=== PATIENT | female | born 1985 | race African-American/Black ===

== ENCOUNTER 2023-01-10 11:22 | Inpatient (IN) | payer BC ==
[2023-01-10 12:09] VITALS: BMI 20.7
[2023-01-10] MEDS ORDERED: Betamet Acet/Betamet Na Ph 30 MG/5 ML VIAL ONE (12:43)
[2023-01-10] MEDS ORDERED: Ondansetron PF 4 MG/2 ML Vial IVP PRN (13:19)
[2023-01-10] MEDS ORDERED: hydrALAZINE 20 MG/ML VIAL SLOW IVP PRN (13:19)
[2023-01-10] MEDS ORDERED: Promethazine HCl 25 MG/ML VIAL IM PRN (13:19)
[2023-01-10] MEDS ORDERED: Docusate 100 MG CAP PO PRN (13:19)
[2023-01-10] MEDS ORDERED: Oxytocin 30 units/NS 500 ML 500 ML IV SCH (13:30)
[2023-01-10] MEDS ORDERED: Lorazepam 2 MG/ML VIAL SLOW IVP PRN (13:30)
[2023-01-10] MEDS ORDERED: Calcium Gluc 4.6 MEQ/10 ML (100 MG/ML) SLOW IVP PRN (13:30)
[2023-01-10] MEDS ORDERED: Labetalol HCl 100 MG/20 ML VIAL SLOW IVP PRN (13:30)
[2023-01-10] MEDS ORDERED: NIFEdipine 10 MG CAP PO PRN ×2 (13:30)
[2023-01-10] MEDS ORDERED: NIFEdipine 10 MG CAP ONE (13:45)
[2023-01-10 13:58] LABS: Hematocrit 35.4 % (34.9-44.5); Hemoglobin 11.8 g/dL (12.0-15.5); Mean Corpuscular HGB CONC 33.3 g/dL (32.0-36.0); Mean Corpuscular Hemoglobin 29.6 pg (27.0-33.0); Mean Corpuscular Volume 88.9 fl (81.6-98.3); Mean Platelet Volume 11.7 fl (7.4-10.4); Platelet Count 154 10x3/uL (150-450); RBC Distribution Width 12.6 % (11.5-14.5); Red Blood Cell (RBC) Count 3.98 10x6/uL (3.90-5.03); White Blood Cell (WBC) Count 6.2 10x3/uL (3.5-10.5)
[2023-01-10] MEDS ORDERED: Magnesium Sulfate 20 gm/500 ml 20 GM/500 ML BAG ONE ×2 (14:14→21:11)
[2023-01-10 14:15] LABS: ALT (SGPT) 14 U/L (8-55); AST (SGOT) 21 U/L (5-34); Albumin 3.2 g/dL (3.5-5.0); Alkaline Phosphatase 84 U/L (40-110); Anion Gap 12 mmol/L (10-20); BUN (Urea Nitrogen) 8 mg/dL (7.0-18.7); Bilirubin, Total 0.3 mg/dL (0.2-1.2); Calc. Creatinine Clearance 97 mL/min (70-130); Calcium 8.7 mg/dL (7.8-10.44); Carbon Dioxide 22 mmol/L (22-29); Chloride 107 mmol/L (98-107); Estimated GFR 104; Globulin 2.9 g/dL (2.4-3.5); Glucose 86 mg/dL (70-105); Potassium 4.5 mmol/L (3.5-5.1); Protein, Total 6.1 g/dL (6.0-8.3); Sodium 136 mmol/L (136-145)
[2023-01-10] MEDS: Betamet Acet/Betamet Na Ph 30 MG/5 ML VIAL IM SCH (14:17)
[2023-01-10] MEDS: Lactated Ringer's 1,000 ML IV SCH ×2 (14:30→22:37)
[2023-01-10 17:45] LABS: Creatinine, Urine 49.29 mg/dL (47-110)
[2023-01-10] MEDS ORDERED: Magnesium Sulfate 20 gm/500 ml 4 GM/100 ML BAG IVPB SCH (21:15)
[2023-01-11] MEDS: Lactated Ringer's 1,000 ML IV SCH ×2 (02:25→19:16)
[2023-01-11] MEDS: Acetaminophen 500 MG TAB PO PRN ×2 (04:02→14:15)
[2023-01-11 06:36] LABS: Hematocrit 31.5 % (34.9-44.5); Hemoglobin 10.7 g/dL (12.0-15.5); Mean Corpuscular Hemoglobin 29.6 pg (27.0-33.0); Mean Corpuscular Volume 87.3 fl (81.6-98.3); Mean Platelet Volume 11.6 fl (7.4-10.4); Platelet Count 152 10x3/uL (150-450); RBC Distribution Width 12.6 % (11.5-14.5); Red Blood Cell (RBC) Count 3.61 10x6/uL (3.90-5.03); White Blood Cell (WBC) Count 9.3 10x3/uL (3.5-10.5)
[2023-01-11 06:37] LABS: MDiff Complete? YES
[2023-01-11 06:49] LABS: ALT (SGPT) 12 U/L (8-55); AST (SGOT) 19 U/L (5-34); Albumin 2.8 g/dL (3.5-5.0); Alkaline Phosphatase 77 U/L (40-110); Anion Gap 13 mmol/L (10-20); BUN (Urea Nitrogen) 9 mg/dL (7.0-18.7); Bilirubin, Total 0.2 mg/dL (0.2-1.2); Calc. Creatinine Clearance 95 mL/min (70-130); Carbon Dioxide 18 mmol/L (22-29); Chloride 108 mmol/L (98-107); Estimated GFR 102; Globulin 2.6 g/dL (2.4-3.5); Glucose 99 mg/dL (70-105); Magnesium 4.2 mg/dL (1.6-2.6); Potassium 4.3 mmol/L (3.5-5.1); Protein, Total 5.4 g/dL (6.0-8.3); Sodium 135 mmol/L (136-145)
[2023-01-11 06:53] LABS: Platelet Adequacy Comment Appears Adequate; RBC Morph Comment Within Normal Limits
[2023-01-11 06:55] LABS: Band 4 % (5-11); Eosinophils 2 % (0-10); Lymphocytes 15 % (21-51); Monocytes 4 % (0-10); Neutrophil 75 % (42-75)
[2023-01-11] MEDS ORDERED: Labetalol HCl 100 MG TAB PO SCH (10:30)
[2023-01-11] MEDS ORDERED: Magnesium Sulfate 20 gm/500 ml 20 GM/500 ML BAG ONE (13:59)
[2023-01-11] MEDS: Betamet Acet/Betamet Na Ph 30 MG/5 ML VIAL IM SCH (14:11)
[2023-01-11] MEDS: Prenatal Vitamin 1 TAB PO SCH (14:20)
[2023-01-11 18:14] LABS: HBSAg Index 0.13 S/CO (0-0.99); Hep B Surf Ag - L&D Non-Reactive S/CO (NonReactive); Syphilis Antibody Nonreactive (Nonreactive); Syphilis Antibody Index 0.05 S/CO (<1.00 Non-Reactive)
[2023-01-11 18:17] LABS: Hematocrit 32.5 % (34.9-44.5); Hemoglobin 11.2 g/dL (12.0-15.5); Mean Corpuscular HGB CONC 34.5 g/dL (32.0-36.0); Mean Corpuscular Hemoglobin 30.1 pg (27.0-33.0); Mean Corpuscular Volume 87.4 fl (81.6-98.3); Platelet Count 161 10x3/uL (150-450); RBC Distribution Width 12.7 % (11.5-14.5); Red Blood Cell (RBC) Count 3.72 10x6/uL (3.90-5.03); White Blood Cell (WBC) Count 11.4 10x3/uL (3.5-10.5)
[2023-01-11 19:29] LABS: HIV (1/2) Antibody/Antigen Non-Reactive (NonReactive); HIV 1/2 INDEX 0.11 S/CO (<1.00)
[2023-01-11] MEDS: Labetalol HCl 100 MG TAB PO SCH (21:26)
[2023-01-12 05:16] LABS: #Monocytes 0.6 10x3/uL (0.0-1.1); %Basophils 0.1 % (0.0-2.0); %Lymphocytes 8.9 % (18.0-47.0); %Monocytes 5.8 % (0.0-10.0); %Neutrophils 83.6 % (40.0-75.0); Hematocrit 31.6 % (34.9-44.5); Hemoglobin 10.8 g/dL (12.0-15.5); Mean Corpuscular HGB CONC 34.2 g/dL (32.0-36.0); Mean Corpuscular Hemoglobin 29.8 pg (27.0-33.0); Mean Corpuscular Volume 87.3 fl (81.6-98.3); Mean Platelet Volume 12.2 fl (7.4-10.4); Platelet Count 161 10x3/uL (150-450); RBC Distribution Width 12.8 % (11.5-14.5); Red Blood Cell (RBC) Count 3.62 10x6/uL (3.90-5.03); White Blood Cell (WBC) Count 10.7 10x3/uL (3.5-10.5)
[2023-01-12 05:37] LABS: ALT (SGPT) 14 U/L (8-55); AST (SGOT) 20 U/L (5-34); Albumin 3.1 g/dL (3.5-5.0); Alkaline Phosphatase 76 U/L (40-110); Anion Gap 14 mmol/L (10-20); BUN (Urea Nitrogen) 14 mg/dL (7.0-18.7); Bilirubin, Total Less than 0.2 mg/dL (0.2-1.2); Calc. Creatinine Clearance 92 mL/min (70-130); Calcium 7.3 mg/dL (7.8-10.44); Carbon Dioxide 19 mmol/L (22-29); Chloride 105 mmol/L (98-107); Estimated GFR 98; Globulin 2.7 g/dL (2.4-3.5); Glucose 113 mg/dL (70-105); Potassium 4.9 mmol/L (3.5-5.1); Protein, Total 5.8 g/dL (6.0-8.3); Sodium 133 mmol/L (136-145)
[2023-01-12] MEDS: Lactated Ringer's 1,000 ML IV SCH ×2 (06:31)
[2023-01-12] MEDS ORDERED: Magnesium Sulfate 20 gm/500 ml 0 GM/0 ML BAG ONE (09:14)
[2023-01-12] MEDS: Labetalol HCl 100 MG TAB PO SCH ×2 (09:17→20:52)
[2023-01-12] MEDS ORDERED: hydrALAZINE 20 MG/ML VIAL ONE (21:41)
[2023-01-13] MEDS: Acetaminophen 500 MG TAB PO PRN ×2 (01:07→17:12)
[2023-01-13] MEDS ORDERED: Magnesium Sulfate 20 gm/500 ml 20 GM/500 ML BAG ONE (06:47)
[2023-01-13] MEDS ORDERED: Labetalol HCl 100 MG/20 ML VIAL SLOW IVP PRN ×2 (07:15)
[2023-01-13] MEDS ORDERED: Lorazepam 2 MG/ML VIAL SLOW IVP PRN (07:15)
[2023-01-13] MEDS ORDERED: Calcium Gluc 4.6 MEQ/10 ML (100 MG/ML) SLOW IVP PRN (07:15)
[2023-01-13] MEDS ORDERED: Magnesium Sulfate 20 gm/500 ml 4 GM/100 ML BAG IVPB SCH (07:15)
[2023-01-13] MEDS ORDERED: hydrALAZINE 20 MG/ML VIAL SLOW IVP PRN ×2 (07:15)
[2023-01-13 07:20] LABS: #Monocytes 0.8 10x3/uL (0.0-1.1); #Neutrophils 7.5 10x3/uL (1.5-8.4); %Basophils 0.2 % (0.0-2.0); %Eosinophils 0.2 % (0.0-6.0); %Lymphocytes 15.2 % (18.0-47.0); %Monocytes 7.6 % (0.0-10.0); Hematocrit 31.9 % (34.9-44.5); Hemoglobin 10.7 g/dL (12.0-15.5); Mean Corpuscular HGB CONC 33.5 g/dL (32.0-36.0); Mean Corpuscular Hemoglobin 29.9 pg (27.0-33.0); Mean Corpuscular Volume 89.1 fl (81.6-98.3); Mean Platelet Volume 11.3 fl (7.4-10.4); Platelet Count 149 10x3/uL (150-450); RBC Distribution Width 13.1 % (11.5-14.5); Red Blood Cell (RBC) Count 3.58 10x6/uL (3.90-5.03); White Blood Cell (WBC) Count 9.9 10x3/uL (3.5-10.5)
[2023-01-13 07:31] LABS: ALT (SGPT) 21 U/L (8-55); AST (SGOT) 27 U/L (5-34); Alkaline Phosphatase 76 U/L (40-110); Anion Gap 10 mmol/L (10-20); BUN (Urea Nitrogen) 12 mg/dL (7.0-18.7); Bilirubin, Total 0.2 mg/dL (0.2-1.2); Calc. Creatinine Clearance 101 mL/min (70-130); Calcium 7.3 mg/dL (7.8-10.44); Carbon Dioxide 21 mmol/L (22-29); Chloride 113 mmol/L (98-107); Estimated GFR 109; Globulin 2.6 g/dL (2.4-3.5); Glucose 81 mg/dL (70-105); Potassium 4.4 mmol/L (3.5-5.1); Protein, Total 5.6 g/dL (6.0-8.3); Sodium 140 mmol/L (136-145)
[2023-01-13] MEDS: Lactated Ringer's 1,000 ML IV SCH ×3 (08:44→22:52)
[2023-01-13] MEDS: Prenatal Vitamin 1 TAB PO SCH ×2 (08:44→08:50)
[2023-01-13] MEDS: NIFEdipine XL 30 MG ER.TAB PO SCH (08:50)
[2023-01-13] MEDS: Calcium Carbonate 500 MG ChewTAB PO SCH (08:50)
[2023-01-13] MEDS: Magnesium Sulfate 20 gm/500 ml 20 GM/500 ML BAG IVPB SCH (08:51)
[2023-01-13 11:07] LABS: Creatinine, Urine 25.23 mg/dL (47-110); Protein, Urine Random Quant Less than 10 mg/dL (1-14)
[2023-01-13] MEDS ORDERED: Zolpidem Tartrate 5 MG TAB PO PRN (17:08)
[2023-01-13 22:24] LABS: Magnesium 7.2 mg/dL (1.6-2.6)
[2023-01-14 00:43] LABS: Magnesium 5.8 mg/dL (1.6-2.6)
[2023-01-14] MEDS: Calcium Carbonate 500 MG ChewTAB PO SCH (07:44)
[2023-01-14] MEDS: Prenatal Vitamin 1 TAB PO SCH (08:30)
[2023-01-14] MEDS: NIFEdipine XL 30 MG ER.TAB PO SCH (08:31)
[2023-01-14] MEDS: Acetaminophen 500 MG TAB PO PRN (08:31)
[2023-01-14] MEDS ORDERED: Bicitra 30 ML UDCUP PO PRN (13:53)
[2023-01-14] MEDS ORDERED: Famotidine/PF 20 mg/2ml Vial SLOW IVP PRN (13:53)
[2023-01-14] MEDS ORDERED: CEFAZOLIN 2 GM in Sodium Chloride 0.9% 100 ML IVPB SCH (14:00)
[2023-01-14 14:53] LABS: #Eosinphils 0.1 10x3/uL (0.0-0.5); #Monocytes 0.8 10x3/uL (0.0-1.1); #Neutrophils 6.6 10x3/uL (1.5-8.4); %Basophils 0.2 % (0.0-2.0); %Eosinophils 1.1 % (0.0-6.0); %Lymphocytes 17.4 % (18.0-47.0); %Monocytes 8.4 % (0.0-10.0); %Neutrophils 71.4 % (40.0-75.0); Hematocrit 36.9 % (34.9-44.5); Hemoglobin 12.1 g/dL (12.0-15.5); Mean Corpuscular HGB CONC 32.8 g/dL (32.0-36.0); Mean Corpuscular Hemoglobin 29.2 pg (27.0-33.0); Mean Corpuscular Volume 88.9 fl (81.6-98.3); Mean Platelet Volume 11.9 fl (7.4-10.4); Platelet Count 151 10x3/uL (150-450); RBC Distribution Width 13.2 % (11.5-14.5); Red Blood Cell (RBC) Count 4.15 10x6/uL (3.90-5.03); White Blood Cell (WBC) Count 9.3 10x3/uL (3.5-10.5)
[2023-01-14 15:04] LABS: ALT (SGPT) 94 U/L (8-55); AST (SGOT) 111 U/L (5-34); Albumin 3.2 g/dL (3.5-5.0); Alkaline Phosphatase 94 U/L (40-110); Anion Gap 12 mmol/L (10-20); BUN (Urea Nitrogen) 15 mg/dL (7.0-18.7); Bilirubin, Total 0.2 mg/dL (0.2-1.2); Calc. Creatinine Clearance 93 mL/min (70-130); Calcium 7.5 mg/dL (7.8-10.44); Carbon Dioxide 22 mmol/L (22-29); Chloride 107 mmol/L (98-107); Estimated GFR 99; Globulin 2.9 g/dL (2.4-3.5); Glucose 80 mg/dL (70-105); Potassium 3.9 mmol/L (3.5-5.1); Protein, Total 6.1 g/dL (6.0-8.3); Sodium 137 mmol/L (136-145)
[2023-01-14] MEDS ORDERED: Morphine PF 10 MG/10 ML VIAL ONE (15:22)
[2023-01-14] MEDS ORDERED: fentaNYL 50 mcg/mL 1 mL Vial ONE (15:22)
[2023-01-14] MEDS ORDERED: Sodium Bicarbonate 2.5 MEQ/5 ML VIAL ONE (15:22)
[2023-01-14] MEDS ORDERED: Phenylephrine 40 MG/NS 250 ML 250 ML ONE (15:23)
[2023-01-14] MEDS ORDERED: Midazolam HCl 2 mg/2 ml Vial ONE (16:10)
[2023-01-14] MEDS ORDERED: Ondansetron PF 4 MG/2 ML Vial ONE (16:11)
[2023-01-14] MEDS ORDERED: Dexamethasone 4 mg/ml Vial ONE (16:11)
[2023-01-14] MEDS ORDERED: Oxytocin 10 UNITS/ML VIAL ONE (16:11)
[2023-01-14] MEDS ORDERED: KETAMINE 100 MG/ML (5ML VIAL) ONE (16:14)
[2023-01-14] MEDS ORDERED: Lidocaine 1% PF 10 ML AMP ONE (16:16)
[2023-01-14] MEDS ORDERED: PROPOFOL 20 ML ONE (16:17)
[2023-01-14] MEDS ORDERED: Succinylcholine 200 MG/10 ml SYRINGE FS ONE (16:17)
[2023-01-14] MEDS ORDERED: Lidocaine 1% (PF) 30 ML VIAL ONE (16:17)
[2023-01-14] MEDS ORDERED: Ketorolac Tromethamine 30 MG/ML VIAL ONE (16:27)
[2023-01-14] MEDS ORDERED: Tranexamic Acid 1,000 MG/10 ML VIAL ONE (16:31)
[2023-01-14] MEDS ORDERED: Promethazine HCl 25 MG SUPP PR PRN (16:38)
[2023-01-14] MEDS ORDERED: Naloxone HCl 0.4 mg/ml Vial IVP PRN ×2 (16:38)
[2023-01-14] MEDS ORDERED: diphenhydrAMINE 50 MG/ML VIAL IM PRN (16:38)
[2023-01-14] MEDS ORDERED: HYDROmorphone/PF 10 MG in Sodium Chloride 0.9% 99 ML IV PRN (16:38)
[2023-01-14] MEDS ORDERED: Promethazine HCl 25 MG/ML VIAL IM PRN ×2 (16:38)
[2023-01-14] MEDS ORDERED: Moisturizing Cream (Eucerin) 113 GM JAR TOP PRN (16:38)
[2023-01-14] MEDS ORDERED: diphenhydrAMINE 25 MG CAP PO PRN (16:38)
[2023-01-14] MEDS ORDERED: Naloxone HCl 0.4 mg/ml Vial IV PRN ×2 (16:38)
[2023-01-14] MEDS ORDERED: Meperidine HCl/PF 25 MG/ML VIAL SLOW IVP PRN (16:38)
[2023-01-14] MEDS ORDERED: Ondansetron PF 4 MG/2 ML Vial IVP PRN ×3 (16:38)
[2023-01-14] MEDS ORDERED: diphenhydrAMINE 50 MG/ML VIAL IVP PRN ×2 (16:38)
[2023-01-14] MEDS ORDERED: fentaNYL 50 mcg/mL 1 mL Vial SLOW IVP PRN (16:38)
[2023-01-14] MEDS ORDERED: Communication Order-Pharmacy FS PRN (16:45)
[2023-01-14] MEDS ORDERED: Communication Order-Pharmacy FS SCH (16:45)
[2023-01-14] MEDS ORDERED: HYDROmorphone/PF 10 MG in Sodium Chloride 0.9% 49 ML IVPB PRN (17:00)
[2023-01-15] MEDS: Prenatal Vitamin 1 TAB PO SCH (09:20)
[2023-01-15] MEDS: NIFEdipine XL 30 MG ER.TAB PO SCH (09:20)
[2023-01-15] MEDS: Calcium Carbonate 500 MG ChewTAB PO SCH (09:21)
[2023-01-15] MEDS: Magnesium Sulfate 20 gm/500 ml 20 GM/500 ML BAG IVPB SCH (15:15)
[2023-01-15] MEDS: Lactated Ringer's 1,000 ML IV SCH ×2 (16:24→16:25)
[2023-01-15] MEDS: Ketorolac Tromethamine 30 MG/ML VIAL IVP SCH (16:24)
[2023-01-15] MEDS: Acetaminophen 500 MG TAB PO PRN (16:32)
[2023-01-15] MEDS ORDERED: NIFEdipine XL 30 MG ER.TAB PO SCH (17:00)
[2023-01-15] MEDS ORDERED: hydrALAZINE 20 MG/ML VIAL ONE (17:19)
[2023-01-15] MEDS ORDERED: Promethazine HCl 25 MG/ML VIAL IM PRN ×2 (22:38)
[2023-01-15] MEDS ORDERED: Ibuprofen 800 MG TAB PO SCH (22:38)
[2023-01-15] MEDS ORDERED: Boostrix 0.5 ML (Tdap) VIAL (>/=7 yrs of age) IM ONE (22:38)
[2023-01-15] MEDS ORDERED: Acetaminophen 325 MG TAB PO PRN (22:38)
[2023-01-15] MEDS ORDERED: Lorazepam 2 MG/ML VIAL SLOW IVP PRN (22:38)
[2023-01-15] MEDS ORDERED: Simethicone Chewable 80 MG TAB PO PRN (22:38)
[2023-01-15] MEDS ORDERED: Docusate 100 MG CAP PO SCH ×2 (22:38→23:00)
[2023-01-15] MEDS ORDERED: Lanolin Ointment 7 GM TUBE TOP PRN ×2 (22:38)
[2023-01-15] MEDS ORDERED: Ferrous Sulfate 325 MG TAB PO SCH ×2 (22:38→23:00)
[2023-01-15] MEDS ORDERED: HYDROcodone/Acetaminophen 5/325 mg Tablet PO PRN ×3 (22:38)
[2023-01-15] MEDS ORDERED: Bisacodyl 10 MG SUPP PR PRN ×2 (22:38)
[2023-01-15] MEDS ORDERED: diphenhydrAMINE 25 MG CAP PO PRN ×2 (22:38)
[2023-01-15] MEDS ORDERED: Ondansetron PF 4 MG/2 ML Vial IVP PRN ×2 (22:38)
[2023-01-15] MEDS ORDERED: hydrALAZINE 20 MG/ML VIAL SLOW IVP PRN ×4 (22:38)
[2023-01-15] MEDS ORDERED: Zolpidem Tartrate 5 MG TAB PO PRN (22:38)
[2023-01-15] MEDS ORDERED: Labetalol HCl 100 MG/20 ML VIAL SLOW IVP PRN ×2 (22:38)
[2023-01-15] MEDS ORDERED: Calcium Gluc 4.6 MEQ/10 ML (100 MG/ML) SLOW IVP PRN (22:38)
[2023-01-15] MEDS ORDERED: Prenatal Vitamin 1 TAB PO SCH (23:00)
[2023-01-15] MEDS ORDERED: Magnesium Sulfate 20 gm/500 ml 20 GM/500 ML BAG IVPB SCH (23:00)
[2023-01-15] MEDS: Acetaminophen 325 MG TAB PO PRN (23:35)
[2023-01-16] MEDS: Ibuprofen 800 MG TAB PO SCH ×4 (04:32→22:12)
[2023-01-16 04:34] LABS: Hematocrit 33.3 % (34.9-44.5); Hemoglobin 11.1 g/dL (12.0-15.5); Mean Corpuscular HGB CONC 33.3 g/dL (32.0-36.0); Mean Corpuscular Hemoglobin 29.5 pg (27.0-33.0); Mean Corpuscular Volume 88.6 fl (81.6-98.3); Mean Platelet Volume 11.2 fl (7.4-10.4); Platelet Count 170 10x3/uL (150-450); RBC Distribution Width 13.1 % (11.5-14.5); Red Blood Cell (RBC) Count 3.76 10x6/uL (3.90-5.03); White Blood Cell (WBC) Count 12.2 10x3/uL (3.5-10.5)
[2023-01-16] MEDS: Ketorolac Tromethamine 30 MG/ML VIAL IVP SCH (07:45)
[2023-01-16] MEDS: Lactated Ringer's 1,000 ML IV SCH (07:47)
[2023-01-16] MEDS: Ferrous Sulfate 325 MG TAB PO SCH ×2 (07:51→19:12)
[2023-01-16] MEDS: Simethicone Chewable 80 MG TAB PO PRN (08:57)
[2023-01-16] MEDS: Docusate 100 MG CAP PO SCH ×2 (08:57→22:13)
[2023-01-16] MEDS: Acetaminophen 325 MG TAB PO PRN (08:58)
[2023-01-16] MEDS: Prenatal Vitamin 1 TAB PO SCH (08:58)
[2023-01-16] MEDS ORDERED: Prenatal Vitamin 1 TAB PO SCH (09:00)
[2023-01-16] MEDS ORDERED: NIFEdipine XL 30 MG ER.TAB PO SCH (09:00)
[2023-01-17] MEDS: Ibuprofen 800 MG TAB PO SCH ×3 (05:26→21:34)
[2023-01-17] MEDS: Prenatal Vitamin 1 TAB PO SCH (09:07)
[2023-01-17] MEDS: Ferrous Sulfate 325 MG TAB PO SCH ×2 (09:07→19:16)
[2023-01-17] MEDS: NIFEdipine XL 90 MG ER.TAB PO SCH (09:07)
[2023-01-17] MEDS: Docusate 100 MG CAP PO SCH ×2 (09:07→21:34)
[2023-01-17] MEDS: HYDROcodone/Acetaminophen 5/325 mg Tablet PO PRN ×3 (11:06→21:34)
[2023-01-17] MEDS ORDERED: Labetalol HCl 200 MG TAB PO SCH (18:00)
[2023-01-18 05:29] LABS: ALT (SGPT) 100 U/L (8-55); AST (SGOT) 95 U/L (5-34); Albumin 3.2 g/dL (3.5-5.0); Alkaline Phosphatase 68 U/L (40-110); Anion Gap 13 mmol/L (10-20); BUN (Urea Nitrogen) 11 mg/dL (7.0-18.7); Bilirubin, Total 0.4 mg/dL (0.2-1.2); Calc. Creatinine Clearance 101 mL/min (70-130); Calcium 8.8 mg/dL (7.8-10.44); Carbon Dioxide 26 mmol/L (22-29); Chloride 104 mmol/L (98-107); Estimated GFR 109; Globulin 2.9 g/dL (2.4-3.5); Glucose 72 mg/dL (70-105); Potassium 4.2 mmol/L (3.5-5.1); Protein, Total 6.1 g/dL (6.0-8.3); Sodium 139 mmol/L (136-145)
[2023-01-18] MEDS: Ibuprofen 800 MG TAB PO SCH ×2 (05:49→14:15)
[2023-01-18] MEDS: HYDROcodone/Acetaminophen 5/325 mg Tablet PO PRN ×2 (05:50→18:55)
[2023-01-18] MEDS: Prenatal Vitamin 1 TAB PO SCH (08:57)
[2023-01-18] MEDS: Docusate 100 MG CAP PO SCH ×2 (08:57→21:18)
[2023-01-18] MEDS: NIFEdipine XL 90 MG ER.TAB PO SCH (08:57)
[2023-01-18] MEDS: Labetalol HCl 200 MG TAB PO SCH ×2 (08:58→21:18)
[2023-01-18] MEDS: Ferrous Sulfate 325 MG TAB PO SCH ×2 (08:58→19:15)
[2023-01-18 12:28] LABS: ALT (SGPT) 115 U/L (8-55); AST (SGOT) 109 U/L (5-34); Albumin 3.1 g/dL (3.5-5.0); Alkaline Phosphatase 73 U/L (40-110); Anion Gap 13 mmol/L (10-20); BUN (Urea Nitrogen) 13 mg/dL (7.0-18.7); Bilirubin, Total 0.3 mg/dL (0.2-1.2); Calc. Creatinine Clearance 94 mL/min (70-130); Calcium 8.5 mg/dL (7.8-10.44); Carbon Dioxide 25 mmol/L (22-29); Chloride 104 mmol/L (98-107); Estimated GFR 101; Globulin 2.5 g/dL (2.4-3.5); Glucose 129 mg/dL (70-105); Potassium 3.7 mmol/L (3.5-5.1); Protein, Total 5.6 g/dL (6.0-8.3); Sodium 138 mmol/L (136-145)
[2023-01-18] MEDS ORDERED: Guaifenesin DM 100-10/5 ML UDCUP PO PRN (19:51)
[2023-01-19] MEDS: HYDROcodone/Acetaminophen 5/325 mg Tablet PO PRN ×5 (00:23→23:56)
[2023-01-19 05:46] LABS: ALT (SGPT) 140 U/L (8-55); AST (SGOT) 107 U/L (5-34); Albumin 3.4 g/dL (3.5-5.0); Alkaline Phosphatase 83 U/L (40-110); Anion Gap 13 mmol/L (10-20); BUN (Urea Nitrogen) 11 mg/dL (7.0-18.7); Bilirubin, Total 0.4 mg/dL (0.2-1.2); Calc. Creatinine Clearance 108 mL/min (70-130); Calcium 8.5 mg/dL (7.8-10.44); Carbon Dioxide 25 mmol/L (22-29); Chloride 105 mmol/L (98-107); Estimated GFR 116; Globulin 2.8 g/dL (2.4-3.5); Glucose 84 mg/dL (70-105); Potassium 4.2 mmol/L (3.5-5.1); Protein, Total 6.2 g/dL (6.0-8.3); Sodium 139 mmol/L (136-145)
[2023-01-19] MEDS: Labetalol HCl 200 MG TAB PO SCH ×2 (09:15→20:48)
[2023-01-19] MEDS: Docusate 100 MG CAP PO SCH ×2 (09:15→20:47)
[2023-01-19] MEDS: Prenatal Vitamin 1 TAB PO SCH (09:15)
[2023-01-19] MEDS: NIFEdipine XL 90 MG ER.TAB PO SCH (09:16)
[2023-01-19] MEDS: Ferrous Sulfate 325 MG TAB PO SCH (10:54)
[2023-01-19] MEDS: Ibuprofen 800 MG TAB PO PRN (20:47)
[2023-01-19] MEDS: Simethicone Chewable 80 MG TAB PO PRN (20:47)
[2023-01-20 04:44] LABS: ALT (SGPT) 114 U/L (8-55); AST (SGOT) 63 U/L (5-34); Albumin 3.2 g/dL (3.5-5.0); Alkaline Phosphatase 71 U/L (40-110); Anion Gap 12 mmol/L (10-20); BUN (Urea Nitrogen) 8 mg/dL (7.0-18.7); Bilirubin, Total 0.4 mg/dL (0.2-1.2); Calc. Creatinine Clearance 107 mL/min (70-130); Calcium 8.5 mg/dL (7.8-10.44); Carbon Dioxide 24 mmol/L (22-29); Chloride 107 mmol/L (98-107); Estimated GFR 115; Globulin 2.6 g/dL (2.4-3.5); Glucose 84 mg/dL (70-105); Potassium 4.1 mmol/L (3.5-5.1); Protein, Total 5.8 g/dL (6.0-8.3); Sodium 139 mmol/L (136-145)
[2023-01-20] MEDS: Ibuprofen 800 MG TAB PO PRN ×2 (04:50→16:42)
[2023-01-20] MEDS: Ferrous Sulfate 325 MG TAB PO SCH ×2 (05:31→07:46)
[2023-01-20 08:06] VITALS: BP 135/88; TEMP 98.4
[2023-01-20] MEDS: Docusate 100 MG CAP PO SCH (09:37)
[2023-01-20] MEDS: Labetalol HCl 200 MG TAB PO SCH (09:37)
[2023-01-20] MEDS: NIFEdipine XL 90 MG ER.TAB PO SCH (09:37)
[2023-01-20] MEDS: Prenatal Vitamin 1 TAB PO SCH (09:38)
[2023-01-20] MEDS: HYDROcodone/Acetaminophen 5/325 mg Tablet PO PRN (16:42)
== END 2023-01-20 17:40 | disposition home or self-care (01) | DRG 786 ==
LOC: CSHLD 11:22 → OBSVTOIN 13:20 → CSHPP 01-15 22:21
PROVIDERS: ADMIT Student in an Organized Health Care Education/Training Program; ATTEND Student in an Organized Health Care Education/Training Program
PROC: 10D00Z1 Extraction of Products of Conception, Low, Open Approach (ICD-10-PCS; principal; 2023-01-14)
DX: O36.5930 Maternal care for other known or suspected poor fetal growth, third trimester, not applicable or unspecified (principal); O14.13 Severe pre-eclampsia, third trimester; D25.9 Leiomyoma of uterus, unspecified; D50.8 Other iron deficiency anemias; O32.1XX0 Maternal care for breech presentation, not applicable or unspecified; O99.892 Other specified diseases and conditions complicating childbirth; O99.02 Anemia complicating childbirth; Z91.012 Allergy to eggs; Z91.018 Allergy to other foods; Z3A.29 29 weeks gestation of pregnancy; Z37.0 Single live birth
CPT/HCPCS: 36415; 76819; 80053; 82570; 83735; 84156; 85025; 85027; 86780; 86850; 86900; 86901; 87340; 87389; 88307; 90715; 93976; J0360; J0702; J1100; J1170; J1885; J2250; J2274; J2405; J2590; J2704; J3010; J3475; J3490; J7120